=== PATIENT | male | born 1990 | race Caucasian/White ===

== ENCOUNTER 2018-12-18 23:06 | Emergency (ER) | payer SELFPAY, MEDICAID ==
[2018-12-19] MEDS: IBUPROFEN 800 MG TAB PO (01:06)
[2018-12-19] MEDS: DIPHENHYDRAMINE 25 MG CAP PO (01:06)
[2018-12-19] MEDS: ACYCLOVIR 800 MG TAB PO (01:11)
== END 2018-12-19 01:15 | disposition home or self-care (01) ==
LOC: FTE 23:06
DX: B02.9 Zoster without complications (principal)
CPT/HCPCS: 99283